=== PATIENT | female | born 1975 | race Caucasian/White ===

== ENCOUNTER 2018-07-20 23:15 | Inpatient (IN) | payer OTHER, MEDICAID ==
[~2018-07-20] VITALS: Ht 160 cm; Wt 70.8 kg
[2018-07-20] MEDS ORDERED: LACTATED RINGERS 1,000 ML IV SCH (23:58)
[2018-07-20] MEDS ORDERED: DEXT 5%/LR + PITOCIN 20UNITS/L 1,000 ML IV SCH (23:58)
[2018-07-21] MEDS ORDERED: CARBOPROST TROMETHAMINE 250 MCG/ML AMPUL IM PRN
[2018-07-21] MEDS ORDERED: NALOXONE HCL 0.4 MG/ML 1ML VIAL IM PRN
[2018-07-21] MEDS ORDERED: METHYLERGONOVINE MALEATE 0.2 MG/ML IM PRN
[2018-07-21] MEDS ORDERED: BETAMETHASONE ACET/BETAMET 30 MG/5 ML VIAL IM ONE (00:15)
[2018-07-21 00:33] LABS: BASOPHILS % 0.3 % (0.0-2.0); HEMATOCRIT. 35.6 % (36.0-48.0); HEMOGLOBIN. 12.1 g/dL (12.0-16.0); MEAN CORPUSCULAR HEMOGLOBIN 30.3 pg (28.0-32.0); MEAN CORPUSCULAR VOLUME 89.5 fL (81.0-99.0); MEAN PLATELET VOLUME 8.5 fl (7.4-10.4); NEUTROPHILS % 74.7 % (40.0-76.0); PLATELET 222 x1000/uL (130-400); RED BLOOD CELL COUNT 3.98 mill/uL (4.2-5.4); RED CELL DISTRIBUTION WIDTH 14.3 % (11.6-14.6)
[2018-07-21 00:41] LABS: PARTIAL THROMBOPLASTIN TIME 26.5 sec (23.4-31.0); PROTHROMBIN TIME 9.7 sec (9.1-11.1)
[2018-07-21] MEDS ORDERED: PREN-142 MT (01:11)
[2018-07-21] MEDS ORDERED: CALC-1042 MT (01:11)
[2018-07-21 01:28] LABS: HEPATITIS B SURFACE ANTIGEN NEGATIVE; RUBELLA IGG 110.3 IU/mL (4.99-10)
[2018-07-21 01:30] LABS: CLARITY URINE CLEAR (CLEAR); COLOR URINE YELLOW (YELLOW); KETONES URINE NEGATIVE (NEGATIVE); LEUKOCYTE ESTERASE URINE NEGATIVE (NEGATIVE); NITRITE URINE NEGATIVE (NEGATIVE); OCCULT BLOOD URINE NEGATIVE (NEGATIVE); PROTEIN URINE NEGATIVE (NEGATIVE); SPECIFIC GRAVITY URINE 1.004 (1.005-1.030); UROBILINOGEN URINE 0.2 E.U./dL (0.2-1.0)
[2018-07-21 01:40] LABS: *AMPHETAMINES SCREEN URINE NEGATIVE (NEGATIVE); *BARBITURATES SCREEN URINE NEGATIVE (NEGATIVE); *BENZODIAZEPINES SCREEN URINE NEGATIVE (NEGATIVE); *COCAINE SCREEN URINE NEGATIVE (NEGATIVE); CANNABINOID URINE SCREEN NEGATIVE (NEGATIVE)
[2018-07-21 01:41] LABS: METHADONE URINE SCREEN NEGATIVE (NEGATIVE); OPIATES URINE SCREEN NEGATIVE (NEGATIVE); PHENCYCLIDINE URINE SCREEN NEGATIVE (NEGATIVE)
[2018-07-21] MEDS: AZITHROMYCIN 500 MG in DEXT 5% WATER 250 ML IV SCH (01:45)
[2018-07-21] MEDS ORDERED: MAGNESIUM 4 G PREMIX 100 ML IV ONE (04:30)
[2018-07-21] MEDS: MAGNESIUM 20 G PREMIX (L & D) 500 ML IV SCH ×3 (05:05→23:12)
[2018-07-21] MEDS ORDERED: AMPICILLIN 2,000 MG in SODIUM CHLORIDE 0.9% 100 ML IV NR (07:00)
[2018-07-21] MEDS ORDERED: PNEUMOCOCCAL 23-VAL P-SAC VAC 0.5 ML IM ONE (12:00)
[2018-07-21] MEDS: LACTATED RINGERS 1,000 ML IV SCH (14:24)
[2018-07-21] MEDS: AMPICILLIN 1,000 MG in SODIUM CHLORIDE 0.9% 50 ML IV SCH ×2 (16:46→23:04)
[2018-07-22] MEDS ORDERED: BETAMETHASONE ACET/BETAMET 30 MG/5 ML VIAL IM NR (01:00)
[2018-07-22] MEDS: AZITHROMYCIN 500 MG in DEXT 5% WATER 250 ML IV SCH (02:13)
[2018-07-22] MEDS: LACTATED RINGERS 1,000 ML IV SCH ×2 (02:14→17:10)
[2018-07-22] MEDS: AMPICILLIN 1,000 MG in SODIUM CHLORIDE 0.9% 50 ML IV SCH ×3 (05:42→17:53)
[2018-07-22] MEDS: MAGNESIUM 20 G PREMIX (L & D) 500 ML IV SCH (08:36)
[2018-07-23] MEDS: LACTATED RINGERS 1,000 ML IV SCH ×2 (01:27→11:07)
[2018-07-23] MEDS: AZITHROMYCIN 500 MG in DEXT 5% WATER 250 ML IV SCH (02:13)
[2018-07-23 18:03] VITALS: BP 98/50
[2018-07-23 19:45] VITALS: BP 103/50
[2018-07-23] MEDS ORDERED: PRENATAL VIT/FE FUMARATE/FA TABLET PO SCH (21:00)
[2018-07-23] MEDS ORDERED: DOCUSATE SODIUM SUGAR FREE 100MG/10ML UDC NG SCH (22:30)
[2018-07-24] VITALS: BP 105/53
[2018-07-24 04:00] VITALS: BP 106/55
[2018-07-24 08:00] VITALS: BP 104/57
[2018-07-24 15:21] VITALS: BP 98/50
== END 2018-07-24 18:40 | disposition home or self-care (01) | DRG 782 ==
LOC: OBSVTOIN 23:15 → INTOOBSV 23:15 → L&D 23:15 → OBSVTOIN 07-23 18:00 → 7EST PP/OB 07-23 18:01
PROVIDERS: ADMIT Obstetrics & Gynecology; ATTEND Obstetrics & Gynecology
DX: O44.13 Complete placenta previa with hemorrhage, third trimester (principal); Z3A.29 29 weeks gestation of pregnancy; Z98.891 History of uterine scar from previous surgery
CPT/HCPCS: 36415; 76805; 76818; 80305; 81003; 83735; 85025; 85610; 85730; 86592; 86703; 86762; 86850; 86900; 87340; G0378; J0290; J0456; J0702; J3475; J7050; J7060; J7120

== ENCOUNTER 2022-10-26 20:58 | Emergency (ER) | payer MEDICAID, OTHER ==
[~2022-10-26] VITALS: Ht 160 cm; Wt 73.0 kg
[~2022-10-26 20:58] MED LIST: CALC-1042 MT; PRENATAL ONE T1 EACH MT
[2022-10-26 21:11] VITALS: BP 153/75
== END 2022-10-27 02:00 | disposition left against medical advice (07) ==
LOC: ER 20:58
DX: Z53.21 Procedure and treatment not carried out due to patient leaving prior to being seen by health care provider (principal)